=== PATIENT | male | born 1970 | race African-American/Black ===

== ENCOUNTER → 2018-04-22 | Outpatient (CLI) | payer OTHER ==
--- NOTE | 2018-04-22 12:52 | DIAGNOSTIC IMAGING REPORT ---
THYROID ULTRASONOGRAPHY CLINICAL HISTORY: THYROMEGALY COMPARISON STUDY: No previous studies for comparison. FINDINGS: The right lobe of the thyroid measures 5.6 x 4.8 x 6.2 cm. There is a dominant hypervascular isoechoic right lobe nodule measuring 6.1 x 4.3 x 3.6 cm. The left lobe measures 5.6 x 2.1 x 1.3 cm. No left lobe nodules are visualized.. IMPRESSION: 1. Dominant 6 cm isoechoic right lobe thyroid nodule. Fine-needle aspiration biopsy is recommended in follow-up. Electronically signed by: Daryl Khalil M.D. 04/22/2018 12:50 PM Dictated Date/Time: 04/22/2018 12:46 PM
== END | disposition home or self-care (01) ==
LOC: C.ULTR 11:59
PROVIDERS: ATTEND Family Medicine
DX: E04.1 Nontoxic single thyroid nodule (principal)

== ENCOUNTER → 2018-04-28 | Outpatient (CLI) | payer OTHER ==
--- NOTE | 2018-04-28 12:13 | DIAGNOSTIC IMAGING REPORT ---
ULTRASOUND GUIDED FINE NEEDLE ASPIRATION OF RIGHT LOBE THYROID NODULE CLINICAL HISTORY: RT THYROID NODULE COMPARISON STUDY: Thyroid ultrasound April 22, 2018. PROCEDURE: The procedure, risks and benefits were discussed with the patient. The patient agreed to the procedure and informed written consent was obtained. The procedure was performed by Dr. Rios following a timeout. Skin was prepped and draped in sterile fashion and local anesthesia was achieved with 1% lidocaine. Under direct ultrasound guidance, 1 25-gauge fine needle aspiration within the dominant right lobe thyroid nodule was performed. This was deemed preliminarily adequate by pathology. The patient tolerated the procedure well and immediate complications were evident. IMPRESSION: Successful ultrasound guided fine needle aspiration of a 6.1 cm right lobe thyroid nodule. Electronically signed by: Deon Rios M.D. 04/28/2018 12:12 PM Dictated Date/Time: 04/28/2018 12:11 PM
== END | disposition home or self-care (01) ==
LOC: C.ULTR 10:57
PROVIDERS: ATTEND Family Medicine
DX: E04.1 Nontoxic single thyroid nodule (principal)